=== PATIENT | female | born 1990 | race American Indian/Alaskan Native ===

== ENCOUNTER 2016-07-18 20:33 | Emergency (ER) | payer SELFPAY ==
[2016-07-18 21:01] VITALS: BP 147/99
[2016-07-18 21:22] LABS: Basophils % (Auto) 0.5 % (0.0-1.8); Eosinophils % (Auto) 0.4 % (0.0-4.3); Hematocrit 37.4 % (30.3-42.9); Hemoglobin 12.9 gm/dl (10.1-14.3); Mean Corpuscular HGB Conc 35 % (30-34); Mean Corpuscular Hemoglobin 35 pg (28-32); Mean Corpuscular Volume 102 fl (79-97); Platelet Count 341 K/mm3 (140-440); Red Blood Count 3.65 M/mm3 (3.65-5.03); Red Cell Distribution Width 13.1 % (13.2-15.2); White Blood Count 8.1 K/mm3 (4.5-11.0)
[2016-07-18 22:01] LABS: Alanine Aminotransferase 21 units/L (7-56); Albumin 4.7 g/dL (3.9-5); Albumin/Globulin Ratio 1.3 %; Alkaline Phosphatase 45 units/L (35-129); Anion Gap 21 mmol/L; BUN/Creatinine Ratio 13.33; Blood Urea Nitrogen 8 mg/dL (7-17); Calcium 10.3 mg/dL (8.4-10.2); Carbon Dioxide 23 mmol/L (22-30); Chloride 96.7 mmol/L (98-107); Glucose 87 mg/dL (65-100); Lipase 28 units/L (13-60); Potassium 4.2 mmol/L (3.6-5.0); Sodium 136 mmol/L (137-145); Total Protein 8.2 g/dL (6.3-8.2)
[2016-07-18 22:03] LABS: Bacteria,Urine 1+ /HPF (Negative); Bilirubin,Urine NEG (Negative); Blood,Urine SM (Negative); Ketones,Urine 20 mg/dL (Negative); Leukocyte Esterase,Urine LG (Negative); Mucus,Urine 1+ /HPF; Nitrite,Urine NEG (Negative); Protein,Urine <15 mg/dL mg/dL (Negative); Urobilinogen,Urine < 2.0 mg/dL (<2.0)
[2016-07-18] MEDS ORDERED: TYLENOL ONE (22:37)
[2016-07-18] MEDS ORDERED: TYLENOL PO ONE (22:39)
== END 2016-07-19 03:00 | disposition left against medical advice (07) ==
LOC: ED 20:33
DX: R10.9 Unspecified abdominal pain (principal); R11.2 Nausea with vomiting, unspecified; Z53.21 Procedure and treatment not carried out due to patient leaving prior to being seen by health care provider
CPT/HCPCS: 36415; 80053; 81001; 81025; 83690; 85025

== ENCOUNTER 2018-07-17 09:51 | Emergency (ER) | payer OTHER ==
[2018-07-17] MEDS ORDERED: ZOFRAN IV ONE (10:08)
[2018-07-17] MEDS ORDERED: SUBLIMAZE IV ONE (10:08)
[2018-07-17] MEDS ORDERED: SUBLIMAZE ONE (10:12)
[2018-07-17] MEDS ORDERED: TORADOL IVP ONE (10:40)
[2018-07-17] MEDS ORDERED: NACL 0.9% 1000 ML 1,000 ML IV ONE (10:41)
--- NOTE | 2018-07-17 10:47 | Emergency Department Report ---
ED General Adult HPI - General Chief complaint: Abdominal Pain Stated complaint: LOWER ABD PAIN Time Seen by Provider: 07/17/18 10:32 Source: patient Mode of arrival: Stretcher Limitations: No Limitations - History of Present Illness Initial comments: The patient presents to the emergency department with a chief complaint of left flank pain that started this morning. Patient states the pain radiates into her left groin. Patient also complains of nausea vomiting as well. Patient has chest pain, shortness breath, or headache. -: Sudden Location: abdomen Radiation: periumbillical Severity scale (0 -10): 10 Quality: sharp Consistency: intermittent Improves with: none Worsens with: none Associated Symptoms: denies other symptoms Treatments Prior to Arrival: none - Related Data Previous Rx's Medication Instructions Recorded Last Taken Type Acetaminophen/Codeine [Tylenol #3] 1 tab PO Q6H PRN #15 tab 07/19/15 Unknown Rx cephALEXin [Keflex] 500 mg PO Q8HR #30 cap 07/19/15 Unknown Rx Acetaminophen/Codeine [Tylenol 1 tab PO Q6H PRN #15 tab 07/17/18 Unknown Rx /Codeine # 3 tab] Ibuprofen [Motrin] 800 mg PO Q8HR PRN #30 tablet 07/17/18 Unknown Rx Promethazine [Phenergan TAB] 25 mg PO Q6HR PRN #20 tab 07/17/18 Unknown Rx Allergies Allergy/AdvReac Type Severity Reaction Status Date / Time No Known Allergies Allergy Verified 05/14/15 10:17 ED Review of Systems ROS: Stated complaint: LOWER ABD PAIN Other details as noted in HPI Comment: All other systems reviewed and negative Constitutional: denies: chills, fever Eyes: denies: eye pain, eye discharge, vision change ENT: denies: ear pain, throat pain Respiratory: denies: cough, shortness of breath, wheezing Cardiovascular: denies: chest pain, palpitations Endocrine: no symptoms reported Gastrointestinal: denies: abdominal pain, nausea, diarrhea Genitourinary: denies: urgency, dysuria, discharge Musculoskeletal: denies: back pain, joint swelling, arthralgia Skin: denies: rash, lesions Neurological: denies: headache, weakness, paresthesias Psychiatric: denies: anxiety, depression Hematological/Lymphatic: denies: easy bleeding, easy bruising ED Past Medical Hx - Past Medical History Hx Kidney Stones: Yes - Surgical History Additional Surgical History: x 1 - Social History Smoking Status: Current Every Day Smoker Substance Use Type: None - Medications Home Medications: Home Medications Medication Instructions Recorded Confirmed Last Taken Type Acetaminophen/Codeine [Tylenol #3] 1 tab PO Q6H PRN #15 tab 07/19/15 Unknown Rx cephALEXin [Keflex] 500 mg PO Q8HR #30 cap 07/19/15 Unknown Rx Acetaminophen/Codeine [Tylenol 1 tab PO Q6H PRN #15 tab 07/17/18 Unknown Rx /Codeine # 3 tab] Ibuprofen [Motrin] 800 mg PO Q8HR PRN #30 tablet 07/17/18 Unknown Rx Promethazine [Phenergan TAB] 25 mg PO Q6HR PRN #20 tab 07/17/18 Unknown Rx ED Physical Exam - General Limitations: No Limitations General appearance: alert, in no apparent distress - Head Head exam: Present: atraumatic, normocephalic - Eye Eye exam: Present: normal appearance, PERRL, EOMI - ENT ENT exam: Present: mucous membranes moist - Neck Neck exam: Present: normal inspection - Respiratory Respiratory exam: Present: normal lung sounds bilaterally. Absent: respiratory distress - Cardiovascular Cardiovascular Exam: Present: regular rate, normal rhythm. Absent: systolic murmur, diastolic murmur, rubs, gallop - GI/Abdominal GI/Abdominal exam: Present: soft, normal bowel sounds. Absent: distended, tenderness - Extremities Exam Extremities exam: Present: normal inspection - Back Exam Back exam: Present: normal inspection - Neurological Exam Neurological exam: Present: alert, oriented X3, CN II-XII intact. Absent: motor sensory deficit - Psychiatric Psychiatric exam: Present: normal affect, normal mood - Skin Skin exam: Present: warm, dry, intact, normal color. Absent: rash ED Course Vital Signs 07/17/18 07/17/18 07/17/18 09:59 10:03 10:17 Temperature 98.9 F Pulse Rate 96 H Respiratory 20 20 20 Rate Blood Pressure 155/78 O2 Sat by Pulse 95 Oximetry 07/17/18 07/17/18 07/17/18 11:03 11:33 11:52 Temperature Pulse Rate Respiratory 19 17 17 Rate Blood Pressure O2 Sat by Pulse Oximetry 07/17/18 12:22 Temperature Pulse Rate Respiratory 15 Rate Blood Pressure O2 Sat by Pulse Oximetry ED Medical Decision Making - Lab Data Result diagrams: 07/17/18 10:11 07/17/18 10:11 Lab Results 07/17/18 07/17/18 07/17/18 Range/Units 10:11 10:11 10:42 WBC 6.1 (4.5-11.0) K/mm3 RBC 3.69 (3.65-5.03) M/mm3 Hgb 13.1 (10.1-14.3) gm/dl Hct 37.3 (30.3-42.9) % MCV 101 H (79-97) fl MCH 35 H (28-32) pg MCHC 35 H (30-34) % RDW 13.2 (13.2-15.2) % Plt Count 361 (140-440) K/mm3 Lymph % (Auto) 28.8 (13.4-35.0) % Benson % (Auto) 6.9 (0.0-7.3) % Eos % (Auto) 1.2 (0.0-4.3) % Baso % (Auto) 0.7 (0.0-1.8) % Lymph # 1.7 (1.2-5.4) K/mm3 Benson # 0.4 (0.0-0.8) K/mm3 Eos # 0.1 (0.0-0.4) K/mm3 Baso # 0.0 (0.0-0.1) K/mm3 Seg Neutrophils % 62.4 (40.0-70.0) % Seg Neutrophils # 3.8 (1.8-7.7) K/mm3 Sodium 136 L (137-145) mmol/L Potassium 4.0 (3.6-5.0) mmol/L Chloride 100.3 (98-107) mmol/L Carbon Dioxide 19 L (22-30) mmol/L Anion Gap 21 mmol/L BUN 8 (7-17) mg/dL Creatinine 0.6 L (0.7-1.2) mg/dL Estimated GFR > 60 ml/min BUN/Creatinine Ratio 13 % Glucose 95 (65-100) mg/dL Calcium 9.5 (8.4-10.2) mg/dL Total Bilirubin 0.60 (0.1-1.2) mg/dL AST 16 (5-40) units/L ALT 11 (7-56) units/L Alkaline Phosphatase 47 (35-129) units/L Total Protein 7.9 (6.3-8.2) g/dL Albumin 4.1 (3.9-5) g/dL Albumin/Globulin Ratio 1.1 % HCG, Quant < 2 (0-4) mIU/mL Urine Color (Yellow) Urine Turbidity (Clear) Urine pH (5.0-7.0) Ur Specific [place] (1.003-1.030) Urine Protein (Negative) mg/dL Urine Glucose (UA) (Negative) mg/dL Urine Ketones (Negative) mg/dL Urine Blood (Negative) Urine Nitrite (Negative) Urine Bilirubin (Negative) Urine Urobilinogen (<2.0) mg/dL Ur Leukocyte Esterase (Negative) Urine WBC (Auto) (0.0-6.0) /HPF Urine RBC (Auto) (0.0-6.0) /HPF U Epithel Cells (Auto) (0-13.0) /HPF Urine Mucus /HPF 07/17/18 Range/Units 11:11 WBC (4.5-11.0) K/mm3 RBC (3.65-5.03) M/mm3 Hgb (10.1-14.3) gm/dl Hct (30.3-42.9) % MCV (79-97) fl MCH (28-32) pg MCHC (30-34) % RDW (13.2-15.2) % Plt Count (140-440) K/mm3 Lymph % (Auto) (13.4-35.0) % Benson % (Auto) (0.0-7.3) % Eos % (Auto) (0.0-4.3) % Baso % (Auto) (0.0-1.8) % Lymph # (1.2-5.4) K/mm3 Benson # (0.0-0.8) K/mm3 Eos # (0.0-0.4) K/mm3 Baso # (0.0-0.1) K/mm3 Seg Neutrophils % (40.0-70.0) % Seg Neutrophils # (1.8-7.7) K/mm3 Sodium (137-145) mmol/L Potassium (3.6-5.0) mmol/L Chloride (98-107) mmol/L Carbon Dioxide (22-30) mmol/L Anion Gap mmol/L BUN (7-17) mg/dL Creatinine (0.7-1.2) mg/dL Estimated GFR ml/min BUN/Creatinine Ratio % Glucose (65-100) mg/dL Calcium (8.4-10.2) mg/dL Total Bilirubin (0.1-1.2) mg/dL AST (5-40) units/L ALT (7-56) units/L Alkaline Phosphatase (35-129) units/L Total Protein (6.3-8.2) g/dL Albumin (3.9-5) g/dL Albumin/Globulin Ratio % HCG, Quant (0-4) mIU/mL Urine Color Yellow (Yellow) Urine Turbidity Slightly-cloudy (Clear) Urine pH 6.0 (5.0-7.0) Ur Specific [place] 1.023 (1.003-1.030) Urine Protein 30 mg/dl (Negative) mg/dL Urine Glucose (UA) Neg (Negative) mg/dL Urine Ketones Tr (Negative) mg/dL Urine Blood Sm (Negative) Urine Nitrite Neg (Negative) Urine Bilirubin Neg (Negative) Urine Urobilinogen < 2.0 (<2.0) mg/dL Ur Leukocyte Esterase Tr (Negative) Urine WBC (Auto) 5.0 (0.0-6.0) /HPF Urine RBC (Auto) 11.0 (0.0-6.0) /HPF U Epithel Cells (Auto) 1.0 (0-13.0) /HPF Urine Mucus 1+ /HPF - Radiology Data Radiology results: report reviewed - Medical Decision Making Discussed results with patient Critical care attestation.: If time is entered above; I have spent that time in minutes in the direct care of this critically ill patient, excluding procedure time. ED Disposition Clinical Impression: Ovarian cyst Disposition: DC-01 TO HOME OR SELFCARE Is pt being admited?: No Does the pt Need Aspirin: No Condition: Stable Instructions: Ovarian Cyst (ED), Abdominal Pain (ED) Additional Instructions: Return if worse Prescriptions: Ibuprofen [Motrin] 800 mg PO Q8HR PRN #30 tablet PRN Reason: Pain Promethazine [Phenergan TAB] 25 mg PO Q6HR PRN #20 tab PRN Reason: Nausea Acetaminophen/Codeine [Tylenol /Codeine # 3 tab] 1 tab PO Q6H PRN #15 tab PRN Reason: pain Referrals: MAHENDRA CHACON MD [Primary Care Provider] - 3-5 Days [facility] [Provider Group] - 3-5 Days Time of Disposition: 14:51
[2018-07-17 10:56] LABS: Basophils % (Auto) 0.7 % (0.0-1.8); Eosinophils # (Auto) 0.1 K/mm3 (0.0-0.4); Eosinophils % (Auto) 1.2 % (0.0-4.3); Hematocrit 37.3 % (30.3-42.9); Hemoglobin 13.1 gm/dl (10.1-14.3); Lymphocytes # (Auto) 1.7 K/mm3 (1.2-5.4); Lymphocytes % (Auto) 28.8 % (13.4-35.0); Mean Corpuscular HGB Conc 35 % (30-34); Mean Corpuscular Volume 101 fl (79-97); Monocytes # (Auto) 0.4 K/mm3 (0.0-0.8); Monocytes % (Auto) 6.9 % (0.0-7.3); Platelet Count 361 K/mm3 (140-440); Red Blood Count 3.69 M/mm3 (3.65-5.03); Red Cell Distribution Width 13.2 % (13.2-15.2)
[2018-07-17 11:24] LABS: Alanine Aminotransferase 11 units/L (7-56); Albumin 4.1 g/dL (3.9-5); BUN/Creatinine Ratio 13; Blood Urea Nitrogen 8 mg/dL (7-17); Calcium 9.5 mg/dL (8.4-10.2); Hemolysis Index 44
[2018-07-17 11:25] LABS: Bilirubin,Urine NEG (Negative); Blood,Urine SM (Negative); Color,Urine Yellow (Yellow); Mucus,Urine 1+ /HPF; Urobilinogen,Urine < 2.0 mg/dL (<2.0)
[2018-07-17] MEDS ORDERED: DILAUDID IV ONE (11:38)
--- NOTE | 2018-07-17 14:26 | Cat Scan Report ---
CT ABDOMEN PELVIS WITHOUT CONTRAST: HISTORY: Left flank pain. COMPARISON: none. TECHNIQUE: Helical CT in 1.25mm intervals without IV contrast. Sagittal and coronal reconstructions. FINDINGS: Lung bases: Normal. Liver: Normal. Biliary system: Normal. Pancreas: Normal. Spleen: Normal. Kidneys/ureters/bladder: The kidneys are normal size, contour and position. There are multiple bilateral renal calyceal stones measuring up to 3-4 mm. Approximately 5 or 6 stones are identified in each kidney. The ureters are normal course and caliber. No obvious ureteral stones. The bladder is empty. Adrenal glands: Normal. Aorta: Normal. Intestines: Normal. Appendix: Not confidently identified, correlate with surgical history. Pelvic viscera: 4.0 x 2.4 cm hypodensity is identified in the right adnexa consistent with an ovarian cyst. The uterus and left adnexa are unremarkable. Ascites: Trace free pelvic fluid. Adenopathy: None. Musculoskeletal: Normal. IMPRESSION: Bilateral nephrolithiasis. No evidence for ureteral stones or hydronephrosis. Right ovarian cyst.
[2018-07-17 15:36] VITALS: BP 126/69
== END 2018-07-17 15:32 | disposition home or self-care (01) ==
LOC: ED 09:51
DX: N83.299 Other ovarian cyst, unspecified side (principal); F17.200 Nicotine dependence, unspecified, uncomplicated; Z79.899 Other long term (current) drug therapy
CPT/HCPCS: 36415; 74176; 80053; 81001; 84702; 85025; 96361; 96374; 96375; 99284; J1170; J1885; J2405; J3010; J7030; Q9967

== ENCOUNTER 2020-08-03 12:51 | Emergency (ER) | payer SELFPAY ==
[2020-08-03 14:03] VITALS: BP 146/90
[2020-08-03] MEDS ORDERED: oxyCODONE /ACETAMINOPHEN 5-325MG TAB PO ONE (14:55)
[2020-08-03] MEDS ORDERED: IBUPROFEN ORAL LIQD 100 MG/5 ML ORAL.LIQD PO ONE (14:55)
--- NOTE | 2020-08-03 14:56 | Emergency Department Report ---
ED General Adult HPI - General Chief complaint: Dental/Oral Stated complaint: dental PUI?: No Time Seen by Provider: 08/03/20 14:45 Source: patient, RN notes reviewed Mode of arrival: Ambulatory Limitations: No Limitations - History of Present Illness Initial comments: The patient was evaluated in the emergency department for symptoms described in the history of present illness. He/she was evaluated in the context of the global COVID-19 pandemic, which necessitated consideration that the patient might be at risk for infection with the virus that causes COVID-19. Institutional protocols and algorithms that pertain to the evaluation of patients at risk for COVID-19 are in a state of rapid change based on information released by regulatory bodies including the CDC and federal and state organizations. These policies and algorithms were followed during the patient's care in the emergency department. Please note that these policies, procedures and recommendations changed on a rapid basis. The patient is a 30-year-old female. She is not known to myself previously. She reports that she has not been , is not , and has not delivered or given in the past 6 weeks. She presents to the ER today with a complaint of gingival pain, dental pain, tooth #1, 2, 3, 29, 30, 31, 32, sensitivity to cold, sensitivity to hot, pain with chewing and swallowing. She denies headache midline neck pain. She has some pain with chewing and swallowing. She has no stridor. She has no dysphonia. She has no pain underneath the base of the tongue. She also complains of swollen lymph nodes on the right side of her neck. She denies chest pain, abdominal pain, shortness of breath, vomiting, she does admit to very dry cough. She smokes tobacco occasionally. She does not really floss all that much, but she reports that she brushes her teeth at least twice a day. -: Gradual, days(s) Location: mouth Radiation: non-radiation Quality: aching Consistency: constant Improves with: rest Worsens with: eating - Related Data Previous Rx's Medication Instructions Recorded Last Taken Type Ibuprofen [Motrin] 800 mg PO Q8HR PRN #30 tablet 07/17/18 Unknown Rx Acetaminophen 650 mg PO Q6HR PRN #1 oral.susp 08/03/20 Unknown Rx Amoxicillin [Amoxicillin 250 MG/5 500 mg PO TID 7 Days #500 ml 08/03/20 Unknown Rx Ml] Chlorhexidine Mouthwash [Peridex] 15 ml MM BID #1 bottle 08/03/20 Unknown Rx Ibuprofen 400 mg PO Q6HR PRN 7 Days #1 08/03/20 Unknown Rx oral.susp Allergies Allergy/AdvReac Type Severity Reaction Status Date / Time No Known Allergies Allergy Verified 05/14/15 10:17 ED Review of Systems ROS: Stated complaint: ABSCESS IN MOUTH, HARD TO SWALLOW Other details as noted in HPI Constitutional: denies: fever Eyes: denies: vision change ENT: ear pain, dental pain, congestion. denies: hearing loss Respiratory: cough Cardiovascular: denies: chest pain Gastrointestinal: denies: abdominal pain Musculoskeletal: denies: back pain Psychiatric: anxiety ED Past Medical Hx - Past Medical History Previous Medical History?: Yes Hx Kidney Stones: Yes - Surgical History Past Surgical History?: Yes Additional Surgical History: x 1 - Social History Smoking Status: Current Every Day Smoker Substance Use Type: None - Medications Home Medications: Home Medications Medication Instructions Recorded Confirmed Last Taken Type Ibuprofen [Motrin] 800 mg PO Q8HR PRN #30 tablet 07/17/18 Unknown Rx Acetaminophen 650 mg PO Q6HR PRN #1 oral.susp 08/03/20 Unknown Rx Amoxicillin [Amoxicillin 250 MG/5 500 mg PO TID 7 Days #500 ml 08/03/20 Unknown Rx Ml] Chlorhexidine Mouthwash [Peridex] 15 ml MM BID #1 bottle 08/03/20 Unknown Rx Ibuprofen 400 mg PO Q6HR PRN 7 Days #1 08/03/20 Unknown Rx oral.susp ED Physical Exam - General Limitations: No Limitations General appearance: alert, anxious, obese - Head Head exam: Present: atraumatic, normocephalic - Eye Eye exam: Present: normal appearance, PERRL, EOMI. Absent: nystagmus - ENT ENT exam: Present: normal exam, normal orophraynx, mucous membranes moist, TM's normal bilaterally, normal external ear exam, other (There is no stridor. There is no elevation of the base of the tongue. There is gingival hyperpigmentation on the right maxillary and mandibular gingiva. There is no obvious abscess. Multiple mandibular and maxillary teeth are tender to percussion. Dental caries noted.) - Neck Neck exam: Present: normal inspection, full ROM, lymphadenopathy (Right-sided submandibular, and cervical adenopathy). Absent: tenderness, meningismus - Respiratory Respiratory exam: Present: normal lung sounds bilaterally. Absent: respiratory distress, wheezes, rales, rhonchi, stridor, decreased breath sounds - Cardiovascular Cardiovascular Exam: Present: regular rate, normal rhythm, normal heart sounds. Absent: bradycardia, tachycardia, irregular rhythm, systolic murmur, diastolic murmur, rubs, gallop - GI/Abdominal GI/Abdominal exam: Present: soft. Absent: distended, tenderness, guarding, rebound, rigid, pulsatile mass - Extremities Exam Extremities exam: Present: normal inspection, full ROM, other (2+ pulses noted in the bilateral upper and lower extremities. There is no palpable cord. negative Homans sign. Muscular compartments are soft. The pelvis is stable.). Absent: pedal edema, calf tenderness - Back Exam Back exam: Present: normal inspection, full ROM. Absent: tenderness, CVA tenderness (R), CVA tenderness (L), paraspinal tenderness, vertebral tenderness - Neurological Exam Neurological exam: Present: alert, oriented X3, normal gait, other (No facial droop. Tongue midline. Extraocular movements intact bilaterally. Facial sensation intact to light touch in V1, V2, V3 distribution bilaterally. 5 and a 5 strength in 4 extremities. Sensation intact to light touch in 4 extremities.). Absent: motor sensory deficit - Psychiatric Psychiatric exam: Present: anxious - Skin Skin exam: Present: warm, dry, intact, normal color. Absent: rash ED Course Vital Signs 08/03/20 14:02 Temperature 99.0 F Pulse Rate 73 Respiratory 18 Rate Blood Pressure 146/90 O2 Sat by Pulse 100 Oximetry - Pulse Oximetry Interpretation Digit-Finger Initial Pulse Oximetry Readin O2 Sat by Pulse Oximetry: 99 Actions Taken: none ED Medical Decision Making - Lab Data Vital Signs 08/03/20 14:02 Temperature 99.0 F Pulse Rate 73 Respiratory 18 Rate Blood Pressure 146/90 O2 Sat by Pulse 100 Oximetry - Medical Decision Making Differential diagnosis, including but not limited to: Dental caries, dentalgia, gingivitis, reactive adenopathy Assessment and plan: 30-year-old female, who is afebrile, with reassuring vital signs, who is not stridulous, protecting her airway, who is saturating 99% on room air, tolerating liquid feeds, without evidence of impending airway compromise, with symptomatic dental caries, dentalgia, and probable gingivitis. Patient currently playing on her cell phone, and making multiple comments that she would like to be discharged. Do not see indication for advanced imaging at this time. We discussed tobacco cessation, antibiotics, proper dental hygiene, close outpatient follow-up with dental. Return precautions are reviewed Critical care attestation.: If time is entered above; I have spent that time in minutes in the direct care of this critically ill patient, excluding procedure time. ED Disposition Clinical Impression: Dentalgia, Dental caries, Tobacco use Disposition: DC- TO HOME OR SELFCARE Is pt being admited?: No Does the pt Need Aspirin: No Condition: Good Instructions: Dental Extraction, [id number], Steps to Quit Smoking, Preventive Dental Care, Adult Additional Instructions: We recommend that the patient discontinue consumption of all tobacco and smoke products. Recommend that patient brush teeth twice daily, and floss at least once every 12-24 hours. We recommend follow-up with an outpatient dentist as soon as possible. [facility] is a local dental clinic. [facility] has a local outpatient dental clinic: [facility] [address] [place] [address] [address] Michael: 11 AM - 4:30 PM Sunday: 8 AM - 4:30 PM Every other : 8 AM - 4:30 PM Every other Sunday: 8 AM - 4:30 PM (Main) (Appointments) Please take the pain medications as needed and directed, and antibiotics as directed. Avoid consumption of alcohol. Advance diet as tolerated. Avoid consumption of excessively hot and cold food, and make certain to eat foods that are soft, bland, and easy to chew and swallow. Please return to the emergency room right away with new pain, worsened pain, migration of pain, projectile vomiting, change in mental status, confusion, inability to tolerate food feeds, new, worsened or different symptoms not present on the initial emergency room evaluation. Referrals: [facility] [Outside] - 3-5 Days [facility] [Outside] - 3-5 Days
[2020-08-03] MEDS ORDERED: AMOXICILLIN 250 MG/10 ML ORAL SYRINGE PO ONE (15:30)
== END 2020-08-03 16:20 | disposition home or self-care (01) ==
LOC: ED 12:51
DX: K02.9 Dental caries, unspecified (principal); F17.200 Nicotine dependence, unspecified, uncomplicated; Z87.442 Personal history of urinary calculi; Z98.890 Other specified postprocedural states; Z79.899 Other long term (current) drug therapy
CPT/HCPCS: 99282

== ENCOUNTER 2021-01-24 04:48 | Emergency (ER) | payer SELFPAY ==
[2021-01-24 05:01] VITALS: BP 133/87
[2021-01-24] MEDS ORDERED: ONDANSETRON 4 MG/2 ML INJ IV ONE (05:10)
[2021-01-24] MEDS ORDERED: MORPHINE 4 MG/1 ML INJ IV ONE (05:10)
[2021-01-24] MEDS ORDERED: SODIUM CHLORIDE 0.9% 1000 ML 1,000 ML IV ONE (05:10)
[2021-01-24 06:23] LABS: Basophils % (Auto) 0.6 % (0.0-1.8); Eosinophils # (Auto) 0.2 K/mm3 (0.0-0.4); Eosinophils % (Auto) 2.3 % (0.0-4.3); Hematocrit 39.1 % (30.3-42.9); Hemoglobin 12.7 gm/dl (10.1-14.3); Lymphocytes # (Auto) 1.4 K/mm3 (1.2-5.4); Lymphocytes % (Auto) 19.6 % (13.4-35.0); Mean Corpuscular HGB Conc 32 % (30-34); Mean Corpuscular Volume 103 fl (79-97); Monocytes # (Auto) 0.4 K/mm3 (0.0-0.8); Monocytes % (Auto) 5.5 % (0.0-7.3); Platelet Count 408 K/mm3 (140-440); Red Blood Count 3.79 M/mm3 (3.65-5.03); Red Cell Distribution Width 13.2 % (13.2-15.2)
[2021-01-24 06:55] LABS: Alanine Aminotransferase 33 units/L (7-56); Albumin 4.3 g/dL (3.9-5); Blood Urea Nitrogen 9 mg/dL (7-17); Calcium 9.2 mg/dL (8.4-10.2); Hemolysis Index 2
[2021-01-24 06:57] LABS: BUN/Creatinine Ratio 13
--- NOTE | 2021-01-24 07:13 | Emergency Department Report ---
<RENEA THOMPSON - Last Filed: 01/24/21 08:26> ED Abdominal Pain HPI - General Chief Complaint: Abdominal Pain Stated Complaint: Possible Kidney Stone - Related Data Previous Rx's Medication Instructions Recorded Last Taken Type Ibuprofen [Motrin] 800 mg PO Q8HR PRN #30 tablet 07/17/18 Unknown Rx Acetaminophen 650 mg PO Q6HR PRN #1 oral.susp 08/03/20 Unknown Rx Amoxicillin [Amoxicillin 250 MG/5 500 mg PO TID 7 Days #500 ml 08/03/20 Unknown Rx Ml] Chlorhexidine Mouthwash [Peridex] 15 ml MM BID #1 bottle 08/03/20 Unknown Rx Ibuprofen 400 mg PO Q6HR PRN 7 Days #1 08/03/20 Unknown Rx oral.susp HYDROcodone/APAP 5-325 [[place] 1 each PO Q4HR PRN #12 tablet 01/24/21 Unknown Rx 5/325] Ketorolac [Toradol] 10 mg PO Q6H PRN #20 tablet 01/24/21 Unknown Rx Ondansetron [Zofran Odt] 4 mg PO Q8HR #15 tab.rapdis 01/24/21 Unknown Rx Allergies Allergy/AdvReac Type Severity Reaction Status Date / Time No Known Allergies Allergy Verified 05/14/15 10:17 ED Past Medical Hx - Medications Home Medications: Home Medications Medication Instructions Recorded Confirmed Last Taken Type Ibuprofen [Motrin] 800 mg PO Q8HR PRN #30 tablet 07/17/18 Unknown Rx Acetaminophen 650 mg PO Q6HR PRN #1 oral.susp 08/03/20 Unknown Rx Amoxicillin [Amoxicillin 250 MG/5 500 mg PO TID 7 Days #500 ml 08/03/20 Unknown Rx Ml] Chlorhexidine Mouthwash [Peridex] 15 ml MM BID #1 bottle 08/03/20 Unknown Rx Ibuprofen 400 mg PO Q6HR PRN 7 Days #1 08/03/20 Unknown Rx oral.susp HYDROcodone/APAP 5-325 [[place] 1 each PO Q4HR PRN #12 tablet 01/24/21 Unknown Rx 5/325] Ketorolac [Toradol] 10 mg PO Q6H PRN #20 tablet 01/24/21 Unknown Rx Ondansetron [Zofran Odt] 4 mg PO Q8HR #15 tab.rapdis 01/24/21 Unknown Rx ED Medical Decision Making - Lab Data Result diagrams: 01/24/21 05:45 01/24/21 05:45 ED Disposition Clinical Impression: Acute abdominal pain in left flank, Nausea and vomiting in adult patient, Renal calculus, left Disposition: 01 HOME / SELF CARE / HOMELESS Is pt being admited?: No Does the pt Need Aspirin: No Condition: Stable Instructions: Flank Pain, Adult, Kqks-me-Hrir, Abdominal Pain (ED) Additional Instructions: I recommend that you take the Toradol, and the hydrocodone as prescribed for pain. Take the Zofran as prescribed for nausea and vomiting. I do recommend following up with the urologist listed on your discharge instructions for further evaluation. You can also follow-up with your PCP. Return to the ER if your symptoms changes or worsens in any way. Prescriptions: HYDROcodone/APAP 5-325 [[place] 5/325] 1 each PO Q4HR PRN #12 tablet PRN Reason: Pain Ketorolac [Toradol] 10 mg PO Q6H PRN #20 tablet PRN Reason: Pain Ondansetron [Zofran Odt] 4 mg PO Q8HR #15 tab.rapdis Referrals: SCOTT RODRIGUEZ MD [Staff Physician] - 3-5 Days Forms: Work/School Release Form(ED) Time of Disposition: 08:28 <MELISA BUSTAMANTE - Last Filed: 01/25/21 04:55> ED Abdominal Pain HPI - General Source: patient Mode of arrival: Ambulatory Limitations: No Limitations - History of Present Illness Initial Comments: Patient is a 30-year-old -Cypriot female with a history of kidney stones presents to the ED with complaint of acute onset persistent severe left flank pain that radiates to the left lower quadrant area with nausea and vomiting for the last 3 hours. Patient states that she was asleep when she woke up with sharp constant stabbing pain on the left flank that has been constant and persistent. Patient states that she believes that the pain is similar to pain she experienced when she had kidney stones in the past. Patient denies vaginal bleeding, dysuria, urinary frequency and urgency, vaginal discharge, fever, chills, cough, chest pain or shortness of breath, diarrhea or low back pain. Complaint: abdominal pain, flank pain (Left flank pain), other (Nausea and vomiting) -: Sudden, hour(s) (3) Location: LLQ, L flank Radiation: LLQ, L flank Migration to: no migration Severity scale (0 -10): 9 Quality: stabbing, sharp Consistency: constant Improves With: nothing Worsens With: vomiting Context: other (Possible kidney stones) Associated Symptoms: denies other symptoms, nausea, vomiting, anorexia. denies: chills, constipation, dysuria, hematemesis, hematochezia, melena, hematuria, syncope - Related Data LMP Date: 01/19/21 ED Review of Systems ROS: Stated complaint: Possible Kidney Stone Other details as noted in HPI Constitutional: denies: chills, fever Eyes: denies: eye pain, eye discharge, vision change ENT: denies: ear pain, throat pain Respiratory: denies: cough, shortness of breath, wheezing Cardiovascular: denies: chest pain, palpitations Endocrine: no symptoms reported Gastrointestinal: abdominal pain (Left flank pain), nausea, vomiting. denies: diarrhea Genitourinary: denies: urgency, dysuria, discharge Musculoskeletal: denies: back pain, joint swelling, arthralgia Skin: denies: rash, lesions Neurological: denies: headache, weakness, paresthesias Psychiatric: denies: anxiety, depression Hematological/Lymphatic: denies: easy bleeding, easy bruising ED Past Medical Hx - Past Medical History Previous Medical History?: Yes Hx Kidney Stones: Yes - Surgical History Past Surgical History?: Yes Additional Surgical History: x 1 - Social History Smoking Status: Current Every Day Smoker Substance Use Type: None ED Physical Exam - General Limitations: No Limitations General appearance: alert, in no apparent distress - Head Head exam: Present: atraumatic, normocephalic, normal inspection - Eye Eye exam: Present: normal appearance, PERRL, EOMI Pupils: Present: normal accommodation - ENT ENT exam: Present: normal exam, normal orophraynx, mucous membranes moist, TM's normal bilaterally, normal external ear exam - Neck Neck exam: Present: normal inspection, full ROM. Absent: tenderness - Respiratory Respiratory exam: Present: normal lung sounds bilaterally. Absent: respiratory distress, wheezes, rales, rhonchi, chest wall tenderness, accessory muscle use, decreased breath sounds, prolonged expiratory - Cardiovascular Cardiovascular Exam: Present: regular rate, normal rhythm, normal heart sounds. Absent: systolic murmur, diastolic murmur, rubs, gallop - GI/Abdominal GI/Abdominal exam: Present: soft, tenderness (Palpable left flank tenderness), normal bowel sounds. Absent: guarding, rebound, hyperactive bowel sounds, h ypoactive bowel sounds, organomegaly, mass - Extremities Exam Extremities exam: Present: normal inspection, full ROM, normal capillary refill - Back Exam Back exam: Present: normal inspection, full ROM. Absent: tenderness, CVA tenderness (R), CVA tenderness (L), muscle spasm, paraspinal tenderness - Neurological Exam Neurological exam: Present: alert, oriented X3, CN II-XII intact, normal gait, reflexes normal - Psychiatric Psychiatric exam: Present: normal affect, normal mood - Skin Skin exam: Present: warm, dry, intact, normal color. Absent: rash ED Course Vital Signs 01/24/21 04:53 Pulse Rate 85 Respiratory 20 Rate Blood Pressure 133/87 [Left] O2 Sat by Pulse 100 Oximetry ED Medical Decision Making - Lab Data Result diagrams: 01/24/21 05:45 01/24/21 05:45 - Radiology Data Radiology results: report reviewed, [place] [address] Cat Scan Report Signed Patient: IGNACIO ROCHE MR#: [id number] : 1990 Acct:[id number] Age/Sex: 30 / F ADM Date: 01/24/21 Loc: ED Attending Dr: Ordering Physician: XU INTERIANO Date of Service: 01/24/21 Procedure(s): CT abdomen pelvis wo con Accession Number(s): [id number] cc: XU INTERIANO CT ABDOMEN AND PELVIS WITHOUT CONTRAST INDICATION / CLINICAL INFORMATION: Left flank pain, R/O stones. TECHNIQUE: Axial CT images were obtained through the abdomen and pelvis without IV contrast. Sagittal and coronal reformatted images. All CT scans at this location are performed using CT dose reduction for ALARA by means of automated exposure control. COMPARISON: 07/17/2018 FINDINGS: LOWER CHEST: 3 mm nodule in the subtle pleural right lower lobe is unchanged. The lung bases are clear otherwise. No parenchymal disease is appreciated. LIVER: No significant abnormality. GALLBLADDER: No significant abnormality. BILE DUCTS: No significant abnormality. PANCREAS: No significant abnormality. SPLEEN: No significant abnormality. ADRENALS: No significant abnormality. RIGHT KIDNEY and URETER: No significant abnormality. Nephrolithiasis noted on the previous exam is no longer seen. LEFT KIDNEY and URETER: A punctate calyceal stone is identified at the superior pole on image 49, series 2. Otherwise nephrolithiasis seen on the previous exam has greatly improved. No convincing left ureteral stone or hydronephrosis is identified. STOMACH and SMALL BOWEL: No significant abnormality. COLON: No significant abnormality. APPENDIX: No significant abnormality. PERITONEUM: No free fluid. No free air. No fluid collection. LYMPH NODES: No significant adenopathy. AORTA and ARTERIES: No significant abnormality. IVC and VEINS: No significant abnormality. URINARY BLADDER: Mostly empty but unremarkable. REPRODUCTIVE ORGANS: No significant abnormality. ADDITIONAL FINDINGS: None. SKELETAL SYSTEM: No significant abnormality. IMPRESSION: A punctate left renal calyceal stone is identified. No obstructing ureteral stones. Bilateral nephrolithiasis seen on 2019 CT abdomen and pelvis has greatly improved. Signer Name: Marcos Lyles Jr, MD Signed: 01/24/2021 8:04 AM Workstation Name: [id number] Transcribed By: TTR Dictated By: MARCOS LYLES JR, MD Electronically Authenticated By: MARCOS LYLES JR, MD Signed Date/Time: 01/24/21 0804 DD/ 0759 TD/TT: - Medical Decision Making This is a 30-year-old -Cyp[place] female with a history of kidney stones presents to the ED with complaint of acute onset persistent severe left flank pain that radiates to the left lower quadrant area with nausea and vomiting for the last 3 hours. Patient states that she was asleep when she woke up with sharp constant stabbing pain on the left flank that has been constant and persistent. Patient states that she believes that the pain is similar to pain she experienced when she had kidney stones in the past. In the ED, patient is alert and oriented x3 and is not in any distress but appears to be in significant pain, patient crying in the physical exam. Patient was treated for pain and also for nausea and vomiting and also given normal saline 1 L IV bolus x1. Abdomen pelvis CT scan without contrast is pending. On reevaluation, patient's pain is well controlled with medications. Patient's care was transferred to Ms. Renea Thompson PA-C at shift change at 0700 hrs. She shall review all imaging reports, reassess the patient and disposition the patient accordingly - Differential Diagnosis Kidney stone; dehydration; UTI; pyelonephritis; diverticulitis; Critical care attestation.: If time is entered above; I have spent that time in minutes in the direct care of this critically ill patient, excluding procedure time. ED Disposition Is pt being admited?: No Does the pt Need Aspirin: No
--- NOTE | 2021-01-24 08:08 | Cat Scan Report ---
CT ABDOMEN AND PELVIS WITHOUT CONTRAST INDICATION / CLINICAL INFORMATION: Left flank pain, R/O stones. TECHNIQUE: Axial CT images were obtained through the abdomen and pelvis without IV contrast. Sagittal and baum l reformatted images. All CT scans at this location are performed using CT dose reduction for ALARA b y means of automated exposure control. COMPARISON: 07/17/2018 FINDINGS: LOWER CHEST: 3 mm nodule in the subtle pleural right lower lobe is unchanged. The lung bases are mann r otherwise. No parenchymal disease is appreciated. LIVER: No significant abnormality. GALLBLADDER: No significant abnormality. BILE DUCTS: No significant abnormality. PANCREAS: No significant abnormality. SPLEEN: No significant abnormality. ADRENALS: No significant abnormality. RIGHT KIDNEY and URETER: No significant abnormality. Nephrolithiasis noted on the previous exam is no longer seen. LEFT KIDNEY and URETER: A punctate calyceal stone is identified at the superior pole on image 49, ser ies 2. Otherwise nephrolithiasis seen on the previous exam has greatly improved. No convincing left u reteral stone or hydronephrosis is identified. STOMACH and SMALL BOWEL: No significant abnormality. COLON: No significant abnormality. APPENDIX: No significant abnormality. PERITONEUM: No free fluid. No free air. No fluid collection. LYMPH NODES: No significant adenopathy. AORTA and ARTERIES: No significant abnormality. IVC and VEINS: No significant abnormality. URINARY BLADDER: Mostly empty but unremarkable. REPRODUCTIVE ORGANS: No significant abnormality. ADDITIONAL FINDINGS: None. SKELETAL SYSTEM: No significant abnormality. IMPRESSION: A punctate left renal calyceal stone is identified. No obstructing ureteral stones. Bilateral nephrol ithiasis seen on 2019 CT abdomen and pelvis has greatly improved. Signer Name: Marcos Lyles Jr, MD Signed: 01/24/2021 8:04 AM Workstation Name: [id number]
[2021-01-24 08:17] LABS: Bilirubin,Urine NEG (Negative); Blood,Urine MOD (Negative); Color,Urine Yellow (Yellow); Mucus,Urine FEW /HPF; Protein,Urine <15 mg/dL mg/dL (Negative); Urobilinogen,Urine < 2.0 mg/dL (<2.0)
== END 2021-01-24 08:50 | disposition home or self-care (01) ==
LOC: ED 04:48
DX: N20.0 Calculus of kidney (principal); Z79.899 Other long term (current) drug therapy
CPT/HCPCS: 36415; 74176; 80053; 81001; 84703; 85025; 96361; 96374; 96375; 99284; J2270; J2405; J7030; Q0162